=== PATIENT | female | born 1950 | race Caucasian/White ===

== ENCOUNTER 2018-11-21 13:20 | Emergency (ER) | payer MEDICARE, OTHER ==
[2018-11-21] MEDS ORDERED: Sodium Chloride 0.9% 10 ML Syringe FLUSH PRN (13:43)
[2018-11-21] MEDS ORDERED: Sodium Chloride 0.9% 1,000 ML IV ONE (13:44)
[2018-11-21] MEDS ORDERED: Ondansetron 4 MG/2 ML SDV IV ONE (13:44)
[2018-11-21 14:15] LABS: CHLORIDE,CL 85 mmol/L (101-111); SODIUM,NA 141 mmol/L (135-145)
[2018-11-21 14:26] LABS: ANION GAP 21.4
[2018-11-21] MEDS ORDERED: Pantoprazole 40 MG Vial IVPUSH ONE (14:31)
[2018-11-21] MEDS ORDERED: Potassium Chloride 10 MEQ in Premix Bag 1 BAG IV ONE (14:39)
[2018-11-21] MEDS ORDERED: Lidocaine 1% 30 ML SDV ONE (14:39)
[2018-11-21] MEDS ORDERED: Pantoprazole 40 MG in Sodium Chloride 0.9% 100 ML IV SCH (14:45)
--- NOTE | 2018-11-21 15:35 | EDM.PDOC ---
Scribed by Clarisse Wagoner 11/21/18 [id number] for Roddy Brown MD ED HPI GENERAL MEDICAL PROBLEM - General Chief Complaint: Abdominal Pain Stated Complaint: FEELING SICK, THROWING UP FOR CPL DAYS Time Seen by Provider: 11/21/18 13:25 Source of Information: Reports: Patient, RN, RN Notes Reviewed History Limitations: Reports: No Limitations - History of Present Illness INITIAL COMMENTS - FREE TEXT/NARRATIVE: Patient presented to ER with complaint that she has been vomiting since Thursday evening. She has intense persistent nausea and generalized abdominal discomfort. Denies abdominal pain. Denies diarrhea or constipation. She denies fever but admits to chills. Denies flank pain or urinary symptoms. States her emesis has been dark. She isn't sure if her stool has been dark. Denies any bloody, or tarry stools. No known sick sick contacts. No suspected bad food. She vomited at 7 a.m. and states that she can't keep anything down. Onset: Gradual Onset Date: 11/19/18 Duration: Constant Location: Reports: Abdomen Improves with: Reports: None Worsens with: Reports: Eating Associated Symptoms: Reports: No Other Symptoms - Related Data Allergies Allergy/AdvReac Type Severity Reaction Status Date / Time Sulfa (Sulfonamide Allergy Rash Verified 11/21/18 13:38 Antibiotics) sulfamethoxazole Allergy Rash Verified 11/21/18 13:38 [From Bactrim] trimethoprim [From Bactrim] Allergy Rash Verified 11/21/18 13:38 oxycodone AdvReac Itching Verified 11/21/18 13:38 Home Meds: Home Meds Anastrozole [Arimidex] 1 tab PO DAILY 11/21/18 [History] Potassium Chloride [Klor-Con 10] 10 meq PO DAILY 11/21/18 [History] ED ROS GENERAL - Review of Systems Review Of Systems: ROS reveals no pertinent complaints other than HPI. ED EXAM, GI/ABD - Physical Exam Exam: See Below Exam Limited By: No Limitations General Appearance: Alert, No Apparent Distress, Thin, Other (Frail, and appears older than stated age.) Eyes: Bilateral: Normal Appearance (No scleral icterus), EOMI Ears: Normal External Exam Nose: Normal Inspection, Normal Mucosa, No Blood Throat/Mouth: Normal Lips, Normal Oropharynx, Normal Voice, No Airway Compromise , Other (Dry oral mucosa) Head: Atraumatic, Normocephalic Neck: Normal Inspection, Supple, Non-Tender, Full Range of Motion Respiratory/Chest: No Respiratory Distress, Lungs Clear, Normal Breath Sounds, No Accessory Muscle Use, Chest Non-Tender Cardiovascular: Regular Rate, Rhythm, No Edema, Tachycardia GI/Abdominal Exam: Soft, Non-Tender, No Distention, Abnormal Bowel Sounds ( Hypoactive). No: No Abnormal Bruit, No Mass, Pelvis Stable, Guarding, Rigid, Rebound (Female) Exam: Deferred Back Exam: Normal Inspection Extremities: Normal Inspection, Normal Range of Motion, Non-Tender, Normal Capillary Refill, No Pedal Edema Neurological: Alert, Oriented, CN II-XII Intact, Normal Cognition, Normal Gait, No Motor/Sensory Deficits Psychiatric: Normal Affect, Normal Mood Skin Exam: Warm, Dry, Intact, Normal Color, No Rash Course - Vital Signs Last Recorded V/S: Last Vital Signs Temp 36.7 C 11/21/18 13:39 Pulse 108 H 11/21/18 13:39 Resp 16 11/21/18 13:39 BP 119/64 11/21/18 13:39 Pulse Ox 97 11/21/18 13:39 - Orders/Labs/Meds Orders: Active Orders 24 hr Category Date Time Status Peripheral IV Care [RC] . DIRECTED Care 11/21/18 13:43 Active UA RFX VERA AND CULT IF INDIC [URIN] Stat Lab 11/21/18 13:43 Ordered Pantoprazole [ProTONIX IV] 40 mg Med 11/21/18 14:45 Active Sodium Chloride 0.9% [Normal Saline] 100 ml IV .CONTINUOS Potassium Chloride [KCl 10 MEQ in Water 100 ML] 10 meq Med 11/21/18 14:39 Active Premix Bag 1 bag IV ONETIME Sodium Chloride 0.9% [Saline Flush] Med 11/21/18 13:43 Active 10 ml FLUSH ASDIRECTED PRN Peripheral IV Insertion Adult [OM.PC] Stat Oth 11/21/18 13:43 Ordered Medication Orders Pantoprazole Sodium 40 mg/ (Sodium Chloride) 100 mls @ 20 mls/hr IV .CONTINUOS JUAN MANUEL Last Admin: 11/21/18 14:39 Dose: 20 mls/hr Potassium Chloride 10 meq/ (Premix) 100 mls @ 100 mls/hr IV ONETIME ONE Stop: 11/21/18 15:38 Last Admin: 11/21/18 14:50 Dose: 100 mls/hr Sodium Chloride (Saline Flush) 10 ml FLUSH ASDIRECTED PRN PRN Reason: Keep Vein Open Last Admin: 11/21/18 14:17 Dose: 10 ml Labs: Laboratory Tests 11/21/18 11/21/18 11/21/18 Range/Units 13:44 13:44 13:44 WBC 15.1 H (5.0-10.0) 10^3/uL RBC 5.08 (4.2-5.4) 10^6/uL Hgb 15.0 (12.0-16.0) g/dL Hct 46.8 (37.0-47.0) % MCV 92.1 (80-100) fL MCH 29.5 (27.0-34.0) pg MCHC 32.1 L (33.0-35.0) g/dL Plt Count 304 (150-450) 10^3/uL Neut % (Auto) 90.6 H (42.2-75.2) % Lymph % (Auto) 4.5 L (20.5-50.1) % [place] % (Auto) 4.7 (2-8) % Eos % (Auto) 0.1 L (1.0-3.0) % Baso % (Auto) 0.1 (0.0-1.0) % Sodium 141 (135-145) mmol/L Potassium 2.4 L (3.6-5.0) mmol/L Chloride 85 L (101-111) mmol/L Carbon Dioxide 37.0 H (21.0-31.0) mmol/L Anion Gap 21.4 BUN 40 H (7-18) mg/dL Creatinine 0.9 (0.6-1.3) mg/dL Est Cr Clr Drug Dosing 48.80 mL/min Estimated GFR (MDRD) > 60 BUN/Creatinine Ratio 44.44 Glucose 205 H (74-105) mg/dL Lactic Acid 2.9 H (0.5-2.2) mmol/L Calcium 9.9 (8.4-10.2) mg/dl Magnesium 2.6 H (1.8-2.5) mg/dL Total Bilirubin 0.9 (0.2-1.0) mg/dL AST 29 (10-42) IU/L ALT 16 (10-60) IU/L Alkaline Phosphatase 58 (42-121) IU/L Total Protein 8.0 (6.7-8.2) g/dl Albumin 4.8 (3.2-5.5) g/dl Globulin 3.2 Albumin/Globulin Ratio 1.50 Amylase 92 (28-100) U/L Lipase 38 (22-51) U/L Occult Blood Gastric: POSITIVE Meds: Medications Generic Name Dose Route Start Last Admin Trade Name Freq PRN Reason Stop Dose Admin Pantoprazole Sodium 40 mg/ 100 mls @ 20 mls/hr 11/21/18 14:45 11/21/18 14:39 Sodium Chloride IV 20 mls/hr .CONTINUOS JUAN MANUEL Administration Potassium Chloride 10 meq/ 100 mls @ 100 mls/hr 11/21/18 14:39 11/21/18 14:50 Premix IV 11/21/18 15:38 100 mls/hr ONETIME ONE Administration Sodium Chloride 10 ml 11/21/18 13:43 11/21/18 14:17 Saline Flush FLUSH 10 ml ASDIRECTED PRN Administration Keep Vein Open Discontinued Medications Generic Name Dose Route Start Last Admin Trade Name Freq PRN Reason Stop Dose Admin Sodium Chloride 1,000 mls @ 999 mls/hr 11/21/18 13:44 11/21/18 14:17 Normal Saline IV 11/21/18 14:44 999 mls/hr .BOLUS ONE Administration Lidocaine HCl 1 ml 11/21/18 14:39 11/21/18 14:57 Xylocaine-Mpf 1% .XX 11/21/18 14:40 1 ml ONETIME ONE Administration Ondansetron HCl 4 mg 11/21/18 13:44 11/21/18 14:17 Zofran IV 11/21/18 13:45 4 mg ONETIME ONE Administration Pantoprazole Sodium 80 mg 11/21/18 14:31 11/21/18 14:39 Protonix Iv IVPUSH 11/21/18 14:32 80 mg .BOLUS ONE Administration Departure - Departure Time of Disposition: 15:34 Disposition: DC/Tfer to Acute Hospital 02 Condition: Serious Clinical Impression: Upper GI bleed, Hypokalemia Vomiting Qualifiers: Vomiting type: unspecified Vomiting Intractability: intractable Nausea presence : with nausea Qualified Code(s): R11.2 - Nausea with vomiting, unspecified - Discharge Information *PRESCRIPTION DRUG MONITORING PROGRAM REVIEWED*: Not Applicable *COPY OF PRESCRIPTION DRUG MONITORING REPORT IN PATIENT DESTINEE: Not Applicable Referrals: PCP,None [Primary Care Provider] - Forms: ED Department Discharge, Interfacility Transfer EMTALA - My Orders Last 24 Hours: My Active Orders 11/21/18 13:43 Peripheral IV Care [RC] . DIRECTED UA RFX VERA AND CULT IF INDIC [URIN] Stat Sodium Chloride 0.9% [Saline Flush] 10 ml FLUSH ASDIRECTED PRN Peripheral IV Insertion Adult [OM.PC] Stat 11/21/18 14:39 Potassium Chloride [KCl 10 MEQ in Water 100 ML] 10 meq Premix Bag 1 bag IV ONETIME 11/21/18 14:45 Pantoprazole [ProTONIX IV] 40 mg Sodium Chloride 0.9% [Normal Saline] 100 ml IV .CONTINUOS - Assessment/Plan Last 24 Hours: My Active Orders 11/21/18 13:43 Peripheral IV Care [RC] . DIRECTED UA RFX VERA AND CULT IF INDIC [URIN] Stat Sodium Chloride 0.9% [Saline Flush] 10 ml FLUSH ASDIRECTED PRN Peripheral IV Insertion Adult [OM.PC] Stat 11/21/18 14:39 Potassium Chloride [KCl 10 MEQ in Water 100 ML] 10 meq Premix Bag 1 bag IV ONETIME 11/21/18 14:45 Pantoprazole [ProTONIX IV] 40 mg Sodium Chloride 0.9% [Normal Saline] 100 ml IV .CONTINUOS I have read and agree with the documentation that has been completed regarding this visit. By signing this record, I attest that the documentation was completed in my physical presence and is an accurate record of the encounter.
== END 2018-11-21 16:06 ==
LOC: DL.ED 13:20
DX: E87.6 Hypokalemia (principal); K92.2 Gastrointestinal hemorrhage, unspecified; R11.2 Nausea with vomiting, unspecified; Z88.2 Allergy status to sulfonamides; Z88.1 Allergy status to other antibiotic agents; Z79.899 Other long term (current) drug therapy
CPT/HCPCS: 36415; 80053; 82150; 82271; 83605; 83690; 83735; 85025; 96365; 96375; 99285; A4217; C9113; J2001; J2405; J3480; J7030; J7050

== ENCOUNTER 2018-11-30 16:34 | Emergency (ER) | payer MEDICARE, OTHER ==
[2018-11-30] MEDS ORDERED: Sodium Chloride 0.9% 10 ML Syringe FLUSH PRN (16:39)
[2018-11-30 17:19] LABS: ANION GAP 22.9; CHLORIDE,CL 88 mmol/L (101-111); SODIUM,NA 131 mmol/L (135-145)
[2018-11-30] MEDS ORDERED: Sodium Chloride 0.9% 1,000 ML IV ONE (17:29)
[2018-11-30] MEDS ORDERED: Piperacillin/Tazobactam 3.375 GM in Sodium Chloride 0.9% 100 ML IV ONE (17:29)
[2018-11-30] MEDS ORDERED: cefTRIAXone 1 GM in Sodium Chloride 0.9% 50 ML IV ONE (17:30)
--- NOTE | 2018-12-09 15:29 | EDM.PDOC ---
Scribed by Clarisse Wagoner 11/30/18 [id number] for Jennifer Scott NP ED HPI GENERAL MEDICAL PROBLEM - General Chief Complaint: General Stated Complaint: FEELING SICK Time Seen by Provider: 11/30/18 16:51 Source of Information: Reports: Patient, Family, Provider, RN History Limitations: Reports: No Limitations - History of Present Illness INITIAL COMMENTS - FREE TEXT/NARRATIVE: Patient presents to ER from [facility] with complaint of increased lethargy, decreased appetite, sleeping frequently, decreased appetite and increased abdominal bloating. She has a history of surgery for paraesophageal hernia repair at [facility] last week. Procedure went well. She was discharged home and has been progressively declining. She denies any urinary symptoms. She has had fever, chills, shortness of breath, nausea and abdominal gas. No chest pain, vomiting, or diarrhea. Her last bowel movement was Thursday and small--first bowel movement since surgery. Onset: Gradual Duration: Getting Worse Location: Reports: Generalized Quality: Reports: Ache Severity: Moderate Improves with: Reports: None Worsens with: Reports: None Associated Symptoms: Reports: No Other Symptoms Lower Abdomen Pain Score (Numeric/FACES): 4 - Related Data Allergies Allergy/AdvReac Type Severity Reaction Status Date / Time Sulfa (Sulfonamide Allergy Rash Verified 11/30/18 16:49 Antibiotics) sulfamethoxazole Allergy Rash Verified 11/30/18 16:49 [From Bactrim] trimethoprim [From Bactrim] Allergy Rash Verified 11/30/18 16:49 oxycodone AdvReac Itching Verified 11/30/18 16:49 Home Meds: Home Meds Anastrozole [Arimidex] 1 tab PO DAILY 11/21/18 [History] Potassium Chloride [Klor-Con 10] 10 meq PO DAILY 11/21/18 [History] Famotidine 20 mg PO Q6H PRN 11/30/18 [History] Past Medical History Cardiovascular History: Reports: Hypertension Gastrointestinal History: Reports: Hiatal Hernia - Past Surgical History GI Surgical History: Reports: Hernia Repair/Other Social & Family History - Tobacco Use Smoking Status *Q: Never Smoker - Caffeine Use Caffeine Use: Reports: Coffee - Recreational Drug Use Recreational Drug Use: No ED ROS GENERAL - Review of Systems Review Of Systems: ROS reveals no pertinent complaints other than HPI. ED EXAM, GENERAL - Physical Exam Exam: See Below Exam Limited By: No Limitations General Appearance: Lethargic Eye Exam: Bilateral Eye: EOMI, Normal Inspection, PERRL Ears: Normal External Exam, Normal Canal, Hearing Grossly Normal, Normal TMs Nose: Normal Inspection, Normal Mucosa, No Blood Throat/Mouth: Normal Inspection, Normal Lips, Normal Teeth, Normal Gums, Normal Oropharynx, Normal Voice, No Airway Compromise Head: Atraumatic, Normocephalic Neck: Normal Inspection, Supple, Non-Tender, Full Range of Motion Respiratory/Chest: Crackles (bases bilaterally) Cardiovascular: Tachycardia GI/Abdominal: Tender (to touch) (Female) Exam: Deferred Rectal (Female) Exam: Deferred Back Exam: Decreased Range of Motion, Other (weak) Extremities: Normal Inspection, Normal Range of Motion, Non-Tender, Normal Capillary Refill, No Pedal Edema Neurological: Alert, Oriented, CN II-XII Intact, Normal Cognition, Normal Gait, Normal Reflexes, No Motor/Sensory Deficits Psychiatric: Flat Affect Skin Exam: Other (4 laparascopic incision sites--clean and intact) Lymphatic: No Adenopathy Course - Vital Signs Last Recorded V/S: Last Vital Signs Temp 98.5 F 11/30/18 16:43 Pulse 124 H 11/30/18 16:43 Resp 24 H 11/30/18 16:43 BP 116/70 11/30/18 16:43 Pulse Ox 90 L 11/30/18 16:43 - Orders/Labs/Meds Labs: Laboratory Tests 11/30/18 11/30/18 11/30/18 Range/Units 16:48 16:48 16:48 WBC 15.0 H (5.0-10.0) 10^3/uL RBC 4.70 (4.2-5.4) 10^6/uL Hgb 13.8 (12.0-16.0) g/dL Hct 41.6 (37.0-47.0) % MCV 88.5 D (80-100) fL MCH 29.4 (27.0-34.0) pg MCHC 33.2 (33.0-35.0) g/dL Plt Count 445 D (150-450) 10^3/uL Neut % (Auto) 92.0 H (42.2-75.2) % Lymph % (Auto) 2.6 L (20.5-50.1) % [place] % (Auto) 5.0 (2-8) % Eos % (Auto) 0.1 L (1.0-3.0) % Baso % (Auto) 0.3 (0.0-1.0) % Sodium 131 L D (135-145) mmol/L Potassium 3.9 D (3.6-5.0) mmol/L Chloride 88 L (101-111) mmol/L Carbon Dioxide 24.0 D (21.0-31.0) mmol/L Anion Gap 22.9 BUN 51 H (7-18) mg/dL Creatinine 1.5 H (0.6-1.3) mg/dL Est Cr Clr Drug Dosing TNP Estimated GFR (MDRD) 34 BUN/Creatinine Ratio 34.00 Glucose 132 H (74-105) mg/dL Lactic Acid 2.6 H (0.5-2.2) mmol/L Calcium 9.4 (8.4-10.2) mg/dl Total Bilirubin 1.0 (0.2-1.0) mg/dL AST 29 (10-42) IU/L ALT 21 (10-60) IU/L Alkaline Phosphatase 102 (42-121) IU/L Total Protein 7.0 (6.7-8.2) g/dl Albumin 3.5 (3.2-5.5) g/dl Globulin 3.5 Albumin/Globulin Ratio 1.00 Meds: Medications Discontinued Medications Generic Name Dose Route Start Last Admin Trade Name Freq PRN Reason Stop Dose Admin Sodium Chloride 1,000 mls @ 999 mls/hr 11/30/18 17:29 11/30/18 17:57 Normal Saline IV 11/30/18 18:29 999 mls/hr .BOLUS ONE Administration Ceftriaxone Sodium 1 gm/ 50 mls @ 50 mls/hr 11/30/18 17:30 11/30/18 18:29 Sodium Chloride IV 11/30/18 18:29 50 mls/hr ONETIME ONE Administration Piperacillin Sod/Tazobactam 100 mls @ 200 mls/hr 11/30/18 17:29 11/30/18 17: 57 Sod 3.375 gm/ Sodium Chloride IV 11/30/18 17:58 200 mls/hr ONETIME ONE Administration Sodium Chloride 10 ml 11/30/18 16:39 11/30/18 17:00 Saline Flush FLUSH 10 ml ASDIRECTED PRN Administration Keep Vein Open - Radiology Interpretation Free Text/Narrative:: CT Abdomen/Pelvis wo contrast: FINDINGS: Lungs: Patchy groundglass opacities right lung base. Trace right pleural effusion. Pleural space: There is small left pleural effusion. There is left basilar consolidation ABDOMEN: Liver: Normal. No mass. Gallbladder and bile ducts: Normal. No calcified stones. No ductal dilation. Pancreas: Normal. No ductal dilation. Spleen: Normal. No splenomegaly. Adrenals: Normal. No mass. Kidneys and ureters: Normal. No hydronephrosis. Stomach and bowel: There is fluid in a distended distal esophagus. There is significant gastric distention. There are also significantly dilated loops of small bowel throughout the majority of the abdomen and pelvis. This appears to be secondary to a right inguinal hernia. There are diverticula throughout a decompressed colon. There is fluid in a suspected small left inguinal hernia. Appendix: No evidence of appendicitis. PELVIS: Bladder: Unremarkable as visualized. Reproductive: Unremarkable as visualized. ABDOMEN and PELVIS: Intraperitoneal space: Normal. No free air. No significant fluid collection. Bones/joints: No acute fracture. No dislocation. Vasculature: Normal. No abdominal aortic aneurysm. Lymph nodes: Normal. No enlarged lymph nodes. Other findings: There is gas tracking along the lower lateral right chest wall. IMPRESSION: 1. High grade small bowel obstruction secondary to right inguinal hernia. 2. Left pleural effusion with left consolidation 3. Suspected small left inguinal hernia containing small amount of fluid. Thank you for allowing us to participate in the care of your patient. Dictated and Authenticated by: Gee Martinez MD 11/30/2018 6:06 PM Central Time ([place] & [place]) See rad report - Re-Assessments/Exams Free Text/Narrative Re-Assessment/Exam: 12/09/18 14:[address] Walsh at [facility] in [place] who agreed to accept the patient for transfer to [place]. Departure - Departure Time of Disposition: 20:14 Disposition: DC/Tfer to Acute Hospital 02 Condition: Poor Clinical Impression: Bowel obstruction Qualifiers: Intestinal obstruction type: unspecified Intestinal obstruction extent: unspecified extent Qualified Code(s): K56.609 - Unspecified intestinal obstruction, unspecified as to partial versus complete obstruction - Discharge Information *PRESCRIPTION DRUG MONITORING PROGRAM REVIEWED*: No *COPY OF PRESCRIPTION DRUG MONITORING REPORT IN PATIENT DESTINEE: No Referrals: PCP,None [Primary Care Provider] - Forms: ED Department Discharge, Interfacility Transfer DIANA I have read and agree with the documentation that has been completed regarding this visit. By signing this record, I attest that the documentation was completed in my physical presence and is an accurate record of the encounter.
== END 2018-11-30 20:09 ==
LOC: DL.ED 16:34
DX: K56.609 Unspecified intestinal obstruction, unspecified as to partial versus complete obstruction (principal); I10 Essential (primary) hypertension; Z88.2 Allergy status to sulfonamides; Z88.6 Allergy status to analgesic agent; Z79.899 Other long term (current) drug therapy
CPT/HCPCS: 36415; 74176; 80053; 83605; 85025; 87040; 96365; 96366; 96368; 99285; J0696; J2543; J7030; J7050

== ENCOUNTER 2024-01-20 06:18 | Day surgery (SDC) | payer MEDICARE, OTHER ==
[~2024-01-20 06:18] MED LIST: Proparacaine 0.5% Ophth Soln 15 ML Bottle ONE
[2024-01-20] MEDS ORDERED: Ondansetron 4 MG/2 ML SDV IVPUSH PRN (06:30)
[2024-01-20] MEDS ORDERED: Acetaminophen/Codeine 300-30 MG Tab PO PRN (06:30)
[2024-01-20] MEDS ORDERED: Acetaminophen 325 MG Tab PO PRN (06:30)
[2024-01-20] MEDS: Sodium Chloride 0.9% 10 ML Syringe FLUSH PRN (07:05)
[2024-01-20] MEDS: Proparacaine 0.5% Ophth Soln 15 ML Bottle EYELF ONE ×2 (07:29→09:00)
[2024-01-20] MEDS: Tropicamide 1% Ophth Soln 15 ML Bottle EYELF ONE (07:30)
[2024-01-20] MEDS: Timolol Maleate 0.5% Ophth Soln 5 ML Bottle EYELF ONE (07:30)
[2024-01-20] MEDS: Moxifloxacin 0.5% Ophth Soln 3 ML Bottle EYELF ONE (07:30)
[2024-01-20] MEDS: Phenylephrine 10% Ophth Soln 5 ML Bot EYELF ONE (07:31)
[2024-01-20] MEDS: Povidone-Iodine 5% Sterile Ophth Soln 30 ML Bottle EYELF ONE ×2 (07:31→08:59)
[2024-01-20] MEDS: Cataract Ophth Solution EYELF ONE (07:32)
[2024-01-20] MEDS ORDERED: Dexamethasone 4 MG/ML SDV ONE (07:49)
[2024-01-20] MEDS: Lidocaine 1% 30 ML SDV ONE (08:59)
[2024-01-20] MEDS: Apraclonidine 0.5% Ophth Soln 5 ML Bot EYELF ONE (09:00)
[2024-01-20] MEDS: Diclofenac Sodium 0.1% Ophth Soln 5 ML Bottle EYELF ONE (09:00)
[2024-01-20] MEDS: Vancomycin 500 MG SDV EYELF ONE (09:01)
[2024-01-20] MEDS: Dexamethasone/Tobramycin 0.1-0.3% Ophth Oint 3.5 GM Tube EYELF ONE (09:01)
== END 2024-01-20 10:00 | disposition home or self-care (01) ==
LOC: DL.SDS 06:18
PROVIDERS: ATTEND Ophthalmology
DX: H25.812 Combined forms of age-related cataract, left eye (principal); E78.5 Hyperlipidemia, unspecified; R73.03 Prediabetes; I10 Essential (primary) hypertension; K21.9 Gastro-esophageal reflux disease without esophagitis; E66.9 Obesity, unspecified; Z79.899 Other long term (current) drug therapy; Z79.82 Long term (current) use of aspirin; Z88.8 Allergy status to other drugs, medicaments and biological substances; Z88.2 Allergy status to sulfonamides; Z68.23 Body mass index [BMI] 23.0-23.9, adult
CPT/HCPCS: 66984; A9270; J3370; 00142; 99100; J3490

== ENCOUNTER 2024-02-03 06:45 | Day surgery (SDC) | payer MEDICARE, OTHER ==
[2024-02-03] MEDS ORDERED: Acetaminophen 325 MG Tab PO PRN (07:00)
[2024-02-03] MEDS ORDERED: Acetaminophen/Codeine 300-30 MG Tab PO PRN (07:00)
[2024-02-03] MEDS ORDERED: Ondansetron 4 MG/2 ML SDV IVPUSH PRN (07:00)
[2024-02-03] MEDS: Sodium Chloride 0.9% 10 ML Syringe FLUSH PRN (07:35)
[2024-02-03] MEDS: Tropicamide 1% Ophth Soln 15 ML Bottle EYERT ONE (07:36)
[2024-02-03] MEDS: Proparacaine 0.5% Ophth Soln 15 ML Bottle EYERT ONE ×2 (07:36→08:14)
[2024-02-03] MEDS: Timolol Maleate 0.5% Ophth Soln 5 ML Bottle EYERT ONE (07:36)
[2024-02-03] MEDS: Povidone-Iodine 5% Sterile Ophth Soln 30 ML Bottle EYERT ONE ×2 (07:36→08:14)
[2024-02-03] MEDS: Phenylephrine 10% Ophth Soln 5 ML Bot EYERT ONE (07:36)
[2024-02-03] MEDS: Moxifloxacin 0.5% Ophth Soln 3 ML Bottle EYERT ONE (07:36)
[2024-02-03] MEDS: Cataract Ophth Solution EYERT ONE (07:37)
[2024-02-03] MEDS: Lidocaine 1% 30 ML SDV ONE (08:22)
[2024-02-03] MEDS: Vancomycin 500 MG SDV EYERT ONE (08:25)
[2024-02-03] MEDS: Diclofenac Sodium 0.1% Ophth Soln 5 ML Bottle EYERT ONE (08:30)
[2024-02-03] MEDS: Apraclonidine 0.5% Ophth Soln 5 ML Bot EYERT ONE (08:30)
[2024-02-03] MEDS: Dexamethasone/Tobramycin 0.1-0.3% Ophth Oint 3.5 GM Tube EYERT ONE (08:30)
== END 2024-02-03 09:21 | disposition home or self-care (01) ==
LOC: DL.SDS 06:45
PROVIDERS: ATTEND Ophthalmology
DX: H25.811 Combined forms of age-related cataract, right eye (principal); E78.5 Hyperlipidemia, unspecified; I10 Essential (primary) hypertension; R73.03 Prediabetes; E66.9 Obesity, unspecified; Z79.899 Other long term (current) drug therapy; Z79.2 Long term (current) use of antibiotics; Z88.8 Allergy status to other drugs, medicaments and biological substances; Z88.2 Allergy status to sulfonamides; Z88.5 Allergy status to narcotic agent; Z68.23 Body mass index [BMI] 23.0-23.9, adult
CPT/HCPCS: A9270-GY; J3370; J3490

== ENCOUNTER 2024-05-14 21:31 | Emergency (ER) | payer MEDICARE, OTHER ==
[2024-05-14] MEDS: Tranexamic Acid 1,000 MG/10 ML Vial TOP ONE (22:05)
== END 2024-05-14 23:59 | disposition home or self-care (01) ==
LOC: DL.ED 21:31
DX: I83.892 Varicose veins of left lower extremity with other complications (principal); I10 Essential (primary) hypertension; E78.00 Pure hypercholesterolemia, unspecified; M19.90 Unspecified osteoarthritis, unspecified site; Z90.710 Acquired absence of both cervix and uterus; Z86.16 Personal history of COVID-19; Z88.2 Allergy status to sulfonamides; Z88.5 Allergy status to narcotic agent; Z88.1 Allergy status to other antibiotic agents; Z88.8 Allergy status to other drugs, medicaments and biological substances; Z79.82 Long term (current) use of aspirin; Z79.899 Other long term (current) drug therapy
CPT/HCPCS: 99283; J3490